=== PATIENT | female | born 1985 | race African-American/Black ===

== ENCOUNTER 2022-04-26 05:35 | Emergency (ER) | payer BC, OTHER ==
[~2022-04-26] VITALS: Ht 170.2 cm; Wt 85.0 kg
[~2022-04-26 05:35] MED LIST: PREN1TAB22 PO
[2022-04-26 07:26] LABS: APPEARANCE,URINE HAZY (CLEAR); BILIRUBIN,URINE NEGATIVE (NEGATIVE); GLUCOSE, URINE (UA) NEGATIVE (NEGATIVE); KETONES,URINE NEGATIVE (NEGATIVE); LEUKOCYTE ESTERASE ,URINE LARGE (NEGATIVE); NITRATE,URINE NEGATIVE (NEGATIVE); OCCULT BLOOD,URINE LARGE (NEGATIVE); PROTEIN,URINE 100-200,SEE CONFIRM mg/dL (NEGATIVE); SPECIFIC GRAVITIY, URINE 1.002 (1.003-1.030); UROBILINOGEN,URINE <=1.0 mg/dL (<=1.0)
[2022-04-26 07:46] LABS: RBC,URINE >100 /HPF (0-2); SULFOSALICYLIC ACID,URINE 2+ (Negative); WBC,URINE 51-100 /HPF (0-5)
[2022-04-26 07:47] LABS: BACTERIA,URINE Moderate /HPF (None Seen); SQUAMOUS EPITHELIAL CELL,UR Moderate /LPF (None Seen)
[2022-04-26 07:49] VITALS: BP 115/67
[2022-04-26] MEDS ORDERED: PHEN-674 PO (07:58)
[2022-04-26] MEDS ORDERED: NITR-75 PO (07:58)
[2022-04-26] MEDS ORDERED: PHENAZOPYRIDINE HCL 100 MG TABLET PO ONE (08:00)
[2022-04-26] MEDS ORDERED: NITROFURANTOIN MONOHYD/M-CRYST 100 MG CAPSULE [MACROBID] PO ONE (08:00)
== END 2022-04-26 08:10 | disposition home or self-care (01) ==
LOC: EMS 05:37
DX: N39.0 Urinary tract infection, site not specified (principal); N83.209 Unspecified ovarian cyst, unspecified side; Z91.018 Allergy to other foods; Z98.890 Other specified postprocedural states
CPT/HCPCS: 81001; 81002; 84703; 99283